=== PATIENT | female | born 1985 | race Caucasian/White ===

== ENCOUNTER 2019-02-16 21:46 | Emergency (ER) | payer OTHER ==
[~2019-02-16] VITALS: Ht 147.3 cm; Wt 49.9 kg
--- NOTE | 2019-02-16 22:10 | NUR ---
BIB FAMILY FOR C/O SHERRI. RLQ. SINCE 12 NOON. -N/V. LMP 2WKS AGO. - PARA, - . URINE COLLECTED ANT SENT TO THE LAB. VSS. WILL CONT TO MONITOR ,
[2019-02-16] MEDS ORDERED: IV NS 0.9% 1,000 ML BAG IV ONE (22:30)
[2019-02-16 22:31] LABS: APPEARANCE,URINE Clear (CLEAR); BILIRUBIN,URINE Negative (NEGATIVE); BLOOD, URINE Negative Ery/uL (NEGATIVE); COLOR,URINE Light yellow (YELLOW); KETONES,URINE Negative (NEGATIVE); LEUKOCYTE ESTERASE ,URINE Small (NEGATIVE); NITRITE, URINE Negative (NEGATIVE); PROTEIN,URINE Negative (NEGATIVE); UGLUCOSE Negative (NEGATIVE); UROBILINOGEN,URINE 0.2 EU/dL (0.2)
[2019-02-16 22:50] LABS: BASOPHILS # (AUTO) 0.1 /CMM (0.0-0.2); BASOPHILS % (AUTO) 0.7 % (0.0-2.0); HEMATOCRIT 38 % (33-45); LYMPHOCYTES # (AUTO) 2.7 /CMM (0.8-4.8); MEAN CORPUSCULAR HGB CONC 35 g/dl (31.0-36.0); MEAN CORPUSCULAR VOLUME 88 fL (82-100); MONOCYTES % (AUTO) 7.9 % (2.0-12.0); NEUTROPHILS # (AUTO) 8.5 /CMM (1.8-8.9); NEUTROPHILS % (AUTO) 68.4 % (43.0-81.0); PLATELET COUNT (AUTO) 303 /CMM (150-450); RED BLOOD CELL COUNT(AUTO) 4.27 MIL/uL (4.0-5.2); WHITE BLOOD COUNT (AUTO) 12.5 K/uL (4.3-11.0)
[2019-02-16 22:51] LABS: BACTERIA,URINE Few /HPF (None Seen); RBC,URINE 0-2 /HPF (0-2); SQUAMOUS EPITHELIAL CELL,UR Few /HPF (None Seen)
[2019-02-16] MEDS ORDERED: IOHEXOL-300 100 ML VIAL IV ONE (22:59)
[2019-02-16] MEDS ORDERED: CT SWABBABLE VALVE TRANS SET 1 EA INFUS.SET MC ONE (22:59)
[2019-02-16] MEDS ORDERED: IV NS 0.9% 250 ML IV ONE (22:59)
[2019-02-16 23:01] LABS: CALCIUM, SERUM 8.6 mg/dL (8.5-10.1); CREATININE 0.5 mg/dL (0.6-1.3); POTASSIUM 3.9 mmol/L (3.5-5.1)
[2019-02-16 23:06] LABS: ALBUMIN 3.3 g/dL (3.4-5.0); BILIRUBIN,DIRECT 0.1 mg/dL (0.0-0.2); BILIRUBIN,TOTAL 0.7 mg/dL (0.2-1.0); TOTAL PROTEIN, SERUM 6.8 g/dL (6.4-8.2)
--- NOTE | 2019-02-16 23:13 | NUR ---
LEFT FOR CT
--- NOTE | 2019-02-17 00:28 | NUR ---
Patient is resting comfortably in bed with . VSS. PAIN TOLERATEE WELL.
[2019-02-17] MEDS ORDERED: IV D5 LR 1,000 ML IV ONE (01:22)
[2019-02-17] MEDS ORDERED: PIPERACILLIN /TAZOBACTAM 3.375 G in IV D5W 50 ML IV ONE (01:30)
[2019-02-17] MEDS ORDERED: PIPERACILLIN /TAZOBACTAM 3.375 G VIAL IV ONE (01:30)
--- NOTE | 2019-02-17 01:48 | NUR ---
PER MD SON TO INFUSED THE ATB ZOSYN . NO NEED TO DRAW BLOOD CULTURE.
--- NOTE | 2019-02-17 02:45 | NUR ---
PT ACCEPTED TO [facility] BY DR NERI. AWAITING AMBULANCE ETA.
--- NOTE | 2019-02-17 02:48 | NUR ---
PT GOING TO 306-A. NUMBER FOR REPORT. RN RECEIVING ENALISA. [facility] ETA 60-90 MINS.
--- NOTE | 2019-02-17 02:56 | NUR ---
REPORT GIVEN TO MAYITO AT [facility].
[2019-02-17 04:03] VITALS: BP 116/54
--- NOTE | 2019-02-17 04:10 | NUR ---
TRANSFERRED TO [facility] IN STABLE CONDITION. VIA JORDANA BAKER
== END 2019-02-17 04:10 ==
LOC: ER 21:51
DX: K35.80 Unspecified acute appendicitis (principal); E03.9 Hypothyroidism, unspecified
CPT/HCPCS: 36415; 74177; 80048; 80076; 81001; 83690; 84703; 85025; 85730; 87086; 96365; 99285; J2543; J3490 ×3; J7030; J7050; Q9967; 81000-TC; J7060

== ENCOUNTER 2021-02-22 10:18 | Emergency (ER) | payer OTHER ==
[~2021-02-22] VITALS: Ht 149.9 cm; Wt 45.4 kg
[2021-02-22 11:30] LABS: BILIRUBIN,URINE Negative (NEGATIVE); COLOR,URINE YELLOW (YELLOW); LEUKOCYTE ESTERASE ,URINE Negative (NEGATIVE); NITRITE, URINE Negative (NEGATIVE); PROTEIN,URINE Negative (NEGATIVE); UGLUCOSE Negative (NEGATIVE); UROBILINOGEN,URINE 0.2 EU/dL (0.2)
--- NOTE | 2021-02-22 11:35 | NUR ---
SENT BY CLINIC FOR LOW SODIUM AND ELEVATED WBC WITH BODY ACHES X 1 WK. PT AAOX4, VSS. RR EVEN & UNLABORED. DENIES CP, SOB, DIZZINESS, N/V/D AT THIS TIME. PT SEEN & EVAL'D BY DR. GUZMAN. WILL CONT TO MONITOR.
[2021-02-22 11:41] LABS: BASOPHILS % (AUTO) 0.3 % (0.0-2.0); EOSINOPHILS % (AUTO) 0.5 % (0.0-6.0); HEMATOCRIT 38 % (33-45); HEMOGLOBIN 12.9 g/dL (11.5-14.8); LYMPHOCYTES # (AUTO) 2.2 /CMM (0.8-4.8); LYMPHOCYTES % (AUTO) 18.4 % (20.0-44.0); MEAN CORPUSCULAR HGB CONC 34 g/dl (31.0-36.0); MEAN CORPUSCULAR VOLUME 87 fL (82-100); MONOCYTES # (AUTO) 0.7 /CMM (0.1-1.30); MONOCYTES % (AUTO) 5.8 % (2.0-12.0); PLATELET COUNT (AUTO) 489 /CMM (150-450); RED BLOOD CELL COUNT(AUTO) 4.37 MIL/uL (4.0-5.2)
[2021-02-22 11:49] LABS: CALCIUM, SERUM 9.9 mg/dL (8.5-10.1); CARBON DIOXIDE 20 mmol/L (21-32); CHLORIDE 89 mmol/L (98-107); CREATININE 0.8 mg/dL (0.6-1.3); GLUCOSE 93 mg/dL (74-106); POTASSIUM 4.7 mmol/L (3.5-5.1); SODIUM SERUM 124 mmol/L (136-145); UREA NITROGEN, BLOOD 14 mg/dL (7-18)
[2021-02-22 11:55] LABS: ALANINE AMINOTRANSFERASE 42 U/L (12-78); ALKALINE PHOSPHATASE 85 U/L (46-116); ASPARTATE AMINOTRANSFERASE 36 U/L (15-37); BILIRUBIN,DIRECT 0.2 mg/dL (0.0-0.2); BILIRUBIN,TOTAL 0.4 mg/dL (0.2-1.0); TOTAL PROTEIN, SERUM 8.3 g/dL (6.4-8.2)
[2021-02-22] MEDS ORDERED: FENO145T21 PO (12:38)
[2021-02-22] MEDS ORDERED: HYDR5TAB13 PO (12:38)
[2021-02-22] MEDS ORDERED: VIORELE (12:38)
[2021-02-22] MEDS ORDERED: LEVO100T9 PO (12:38)
[2021-02-22 13:28] LABS: THYROID STIMULATING HORMONE 0.351 uIU/mL (0.358-3.74)
--- NOTE | 2021-02-22 14:05 | NUR ---
PT VSS. RR EVEN & UNLABORED. DENIES CP, SOB, DIZZINESS, N/V AT THIS TIME. WILL CONT TO MONITOR.
--- NOTE | 2021-02-22 14:15 | NUR ---
CALL FROM DR BRYANT,SPOKE WITH DR GUZMAN,ACCEPTED PATIENT FOR TX TO [facility]
--- NOTE | 2021-02-22 17:12 | NUR ---
PT STABLE, RR EVEN & UNLABORED. DENIES CP, SOB, DIZZINESS, N/V AT THIS TIME. WILL CONT TO MONITOR. AWAITING AMBULANCE TO TRANSFER TO [facility].
[2021-02-22] MEDS ORDERED: ACETAMINOPHEN 325 MG TABLET ONE (18:56)
[2021-02-22] MEDS: ACETAMINOPHEN 325 MG TABLET PO ONE (18:59)
--- NOTE | 2021-02-22 18:59 | NUR ---
MEDICATED PER ERMD ORDER, PT AMELIA WELL.
--- NOTE | 2021-02-22 19:10 | NUR ---
DR HARRIS CALLED TO INFORM THAT HE SPOKE TO CM, AND THEY WANT PT TRANSFERRED.
--- NOTE | 2021-02-22 19:11 | NUR ---
CM CALLED. PT GOING TO [facility] ROOM 301-A GIVE REPORT TO CHARGE NURSE AT [phone]. CM ASKING FOR SO TO ARRANGE TRANSPORT
--- NOTE | 2021-02-22 19:25 | NUR ---
CALLED [facility] FOR BLS DIRECTOR INDUSTRIAL NURSING, ETA 45-60MIN
--- NOTE | 2021-02-22 19:44 | NUR ---
ATTMEPTED TO GIVE REPORT TO [facility], NO ANSWER
--- NOTE | 2021-02-22 19:46 | NUR ---
ATEMPTED TO GIVE REPORT, STILL IN REPORT. INSTRUCTED TO CALL BACK IN 15MIN
[2021-02-22 20:05] VITALS: BP 102/61
--- NOTE | 2021-02-22 20:30 | NUR ---
GAVE REPORT TO [facility] FOR [facility]
--- NOTE | 2021-02-22 20:35 | NUR ---
GAVE REPORT TO EMS
== END 2021-02-22 20:43 | disposition short-term general hospital (02) ==
LOC: ER 10:20
DX: E87.1 Hypo-osmolality and hyponatremia (principal); E03.9 Hypothyroidism, unspecified; Q96.9 Turner's syndrome, unspecified; R94.31 Abnormal electrocardiogram [ECG] [EKG]; M79.10 Myalgia, unspecified site; Z20.822 Contact with and (suspected) exposure to COVID-19; R21 Rash and other nonspecific skin eruption; D72.829 Elevated white blood cell count, unspecified
CPT/HCPCS: 36415; 71045; 80048; 80076; 81003; 83605; 84145; 84439; 84443; 84484; 85025; 85730; 87426; 93005; 99291; C9803